=== PATIENT | male | born 1985 | race Caucasian/White ===

== ENCOUNTER 2025-08-14 03:21 | Day surgery (SDC) | payer BC, SELFPAY ==
[2025-08-13 20:04] VITALS: BP 108/75
[2025-08-13 20:35] LABS: Hematocrit 41.8 % (39.0-52.0); Hemoglobin 14.5 g/dL (13.0-18.0); Mean Corp Hgb Conc. 34.7 g/dL (33.0-37.0); Mean Corpuscular Volume 85.3 fL (80.0-94.0); Nucleated Red Blood Cells % 0 % (-); Platelet Count 234 10^3/uL (130-400); Red Cell Dist. Width 11.7 % (11.5-14.5)
[2025-08-13 21:00] LABS: ALT (SGPT) 28 U/L (0-50); AST (SGOT) 21 U/L (17-59); Albumin 4.6 g/dl (3.5-5.0); Alkaline Phosphatase 69 U/L (38-126); Blood Urea Nitrogen 13 mg/dl (9-20); Calcium 9.4 mg/dl (8.4-10.2); Carbon Dioxide 26 mmol/L (22-30); Glucose 91 mg/dl (70-99); Lipase 68 U/L (23-300); Total Protein 7.3 g/dl (6.3-8.2); eGFR > 60.00
[2025-08-13 21:08] LABS: Chloride 105 mmol/L (98-107); Potassium 4.0 mmol/L (3.5-5.1); Sodium 135 mmol/L (135-145)
--- NOTE | 2025-08-13 23:43 | ED.GENMED ---
History of Present Illness
<Sylvie Stock PA-C - Last Filed: 08/14/25 12:37>
General
Chief Complaint: Abdominal Pain
Source: patient
Exam Limitations: none
Time Seen by Provider: 08/13/25 23:28
Nursing documentation reviewed up to this point in time: agreed with
History of Present Illness
History of Present Illness:
Patient is a 40-year-old male who presents to the emergency department for evaluation of upper abdominal pain. Patient states pain started initially on Tuesday evening around 8 PM and was persistent for a few hours however did improve in time for
him to get some sleep. Upon waking yesterday morning he did have some mild discomfort which seemed to gradually worsen throughout the day. Pain was most severe today which he describes as a 'hunger pain' located in his right upper abdomen with
occasional radiation into his right mid back. He was seen in urgent care today where he was referred to the emergency department for imaging with concern of gallbladder/liver etiology. He did have a urinalysis of at urgent care which was
unremarkable.
He reports a relatively normal appetite and has not noticed any clear postprandial correlation to pain.
Patient denies any associated fever, chills, nausea, vomiting, diarrhea, dysuria or hematuria. He denies any chest pain or shortness of breath.
Patient does not drink alcohol. He has a history of polysubstance abuse disorder however has been sober for the past 4 months.
Review of Systems
<Sylvie Stock PA-C - Last Filed: 08/14/25 12:37>
Review of Systems
Allergies reviewed?: Yes
All Other Systems: ROS reviewed and negative except as documented in HPI and ROS
Phy Exam
<Sylvie Stock PA-C - Last Filed: 08/14/25 12:37>
Physical Exam
Physical Exam:
Vitals: Patient's vital signs are stable. Afebrile
General: Patient is very well appearing, no acute distress. Nontoxic appearing
Skin: Warm and dry, no rashes or lesions
Head: Normocephalic, atraumatic
Eyes: Sclera nonicteric.
Throat: Protecting airway
Neck: Normal ROM, no cervical spine tenderness, no meningismus
Cardiac: Regular rate and rhythm, no murmurs.
Pulm: Normal respiratory effort, no wheezes, rales, rhonchi heard on exam
Abdomen: Abdomen soft. Moderate tenderness in right upper quadrant and right mid abdomen. No rebound tenderness or guarding. Negative Ventura sign. No CVA tenderness
Extremities: No evidence of cyanosis or edema
Neuro: AAOx3. Grossly intact.
Psychiatric: Normal affect.
Course
<Sylvie Stock PA-C - Last Filed: 08/14/25 12:37>
Orders/Labs/Results
Orders:
Orders
08/13/25 20:12
Complete Blood Count/With Diff Urgent
Comprehensive Metabolic Panel Urgent
Lipase Urgent
08/13/25 23:39
Ketorolac [Toradol] 15 mg IV NOW STA
08/13/25 23:40
0.9% Sodium Chloride 1000 ml [Nss] 1,000 ml IV BOLUS
08/14/25
CT Abd/Pel (IV only)-DH only Urgent
Reason For Exam: Rt sided abd pain x's 2 days
08/14/25 00:00
US Abdomen Complete/Upper Urgent
Reason For Exam: RUQ pain
08/14/25 02:24
Piperacillin/Tazo 3.375 Gram [Zosyn] 3.375 gram in 50 ml IV NOW
08/14/25 03:05
Admit/Transfer Patient As Directed
Co-Sign Provider:
Level of Care: Observation services
Assign to:: Medical/Surgical
Physician / Group: Dr. Theron Sarmiento / General Surgery
Diagnosis: Acute appendicitis
08/14/25 03:07
Code Status As Directed
Resuscitation Status: Full Code
08/14/25 03:37
0.9% Sodium Chloride 1000 ml [Nss] 1,000 ml IV 100 mls/hr
Benzocaine/Menthol [Anesthetic Lozenge] 1 lozenge PO Q4HPRN PRN
Ondansetron Injectable [Zofran] 4 mg IV Q6HPRN PRN
08/14/25 03:37
Electrocardiogram (*1) Routine
Reason for Study: PreOp
Activity As Directed
Activity Level: Out of Bed-Early Mobility
Anti-embolism (BHUMIKA) Hose As Directed
Type: Thigh high
Bladder Scan As Directed
Follow Bladder Retention/Intermittent Cath Algorithm?: Yes
PRN if no void in __ hours: 6
Frequency: Per Retention Algorithm
If Bladder Scan Result >: 400
then:: Straight cath
Intake/ Output As Directed
Frequency: Per unit guidelines
Pneumatic Compression Sleeves As Directed
Type: Thigh high
Straight Cath As Directed
Frequency: Per Retention Algorithm
Additional Instructions: as per intermittent urinary catheter algorithm
Vital Signs As Directed
Frequency: Per unit guidelines
Weight As Directed
Frequency: Once
O2 Therapy [RESP] Routine
Titrate/Wean O2 to maintain O2 sat greater than (%): 92
Rx Incentive Spirometry [RESP] Routine
Frequency: q1h while awake
# of times per hour: 10
DX Deep Vein Thrombosis Video Routine
08/14/25 04:00
Acetaminophen [Tylenol] 650 mg PO Q4HWA
Ketorolac [Toradol] 10 mg IV Q6H
08/14/25 Breakfast
NPO
Allow oral meds: Yes
Allow clear liquids: Sips of Clears
NPO with Ice Chips: Yes
Comment: NPO for possible OR
08/14/25 08:00
Piperacillin/Tazo 3.375 Gram [Zosyn] 3.375 gram in 50 ml IV Q6H
08/14/25 18:00
Enoxaparin Sodium [Lovenox] 40 mg SC QPM
Abnormal Lab Results
08/13/25
20:12
MPV 10.7 H fL
(7.4-10.4)
08/13/25 20:12
08/13/25 20:12
Vital Signs
Initial and Last Documented VS:
Initial Vital Signs
Temp Pulse Resp BP Pulse Ox
98.9 F 89 18 108/75 98
08/13/25 20:04 08/13/25 20:04 08/13/25 20:04 08/13/25 20:04 08/13/25 20:04
Last Documented Vital Signs
Temp Pulse Resp BP Pulse Ox
97.9 F 57 18 110/82 97
08/14/25 09:19 08/14/25 09:19 08/14/25 09:19 08/14/25 09:19 08/14/25 09:45
<Tavon Keating, - Last Filed: 08/14/25 02:29>
Orders/Labs/Results
Orders:
Orders
08/13/25 20:12
Complete Blood Count/With Diff Urgent
Comprehensive Metabolic Panel Urgent
Lipase Urgent
08/13/25 23:39
Ketorolac [Toradol] 15 mg IV NOW STA
08/13/25 23:40
0.9% Sodium Chloride 1000 ml [Nss] 1,000 ml IV BOLUS
08/14/25
CT Abd/Pel (IV only)-DH only Urgent
Reason For Exam: Rt sided abd pain x's 2 days
08/14/25 00:00
US Abdomen Complete/Upper Urgent
Reason For Exam: RUQ pain
08/14/25 02:24
Piperacillin/Tazo 3.375 Gram [Zosyn] 3.375 gram in 50 ml IV NOW
08/14/25 03:05
Admit/Transfer Patient As Directed
Co-Sign Provider:
Level of Care: Observation services
Assign to:: Medical/Surgical
Physician / Group: Dr. Theron Sarmiento / General Surgery
Diagnosis: Acute appendicitis
08/14/25 03:07
Code Status As Directed
Resuscitation Status: Full Code
08/14/25 03:37
0.9% Sodium Chloride 1000 ml [Nss] 1,000 ml IV 100 mls/hr
Benzocaine/Menthol [Anesthetic Lozenge] 1 lozenge PO Q4HPRN PRN
Ondansetron Injectable [Zofran] 4 mg IV Q6HPRN PRN
08/14/25 03:37
Electrocardiogram (*1) Routine
Reason for Study: PreOp
Activity As Directed
Activity Level: Out of Bed-Early Mobility
Anti-embolism (BHUMIKA) Hose As Directed
Type: Thigh high
Bladder Scan As Directed
Follow Bladder Retention/Intermittent Cath Algorithm?: Yes
PRN if no void in __ hours: 6
Frequency: Per Retention Algorithm
If Bladder Scan Result >: 400
then:: Straight cath
Intake/ Output As Directed
Frequency: Per unit guidelines
Pneumatic Compression Sleeves As Directed
Type: Thigh high
Straight Cath As Directed
Frequency: Per Retention Algorithm
Additional Instructions: as per intermittent urinary catheter algorithm
Vital Signs As Directed
Frequency: Per unit guidelines
Weight As Directed
Frequency: Once
O2 Therapy [RESP] Routine
Titrate/Wean O2 to maintain O2 sat greater than (%): 92
Rx Incentive Spirometry [RESP] Routine
Frequency: q1h while awake
# of times per hour: 10
DX Deep Vein Thrombosis Video Routine
08/14/25 04:00
Acetaminophen [Tylenol] 650 mg PO Q4HWA
Ketorolac [Toradol] 10 mg IV Q6H
08/14/25 Breakfast
NPO
Allow oral meds: Yes
Allow clear liquids: Sips of Clears
NPO with Ice Chips: Yes
Comment: NPO for possible OR
08/14/25 08:00
Piperacillin/Tazo 3.375 Gram [Zosyn] 3.375 gram in 50 ml IV Q6H
08/14/25 18:00
Enoxaparin Sodium [Lovenox] 40 mg SC QPM
Abnormal Lab Results
08/13/25
20:12
MPV 10.7 H fL
(7.4-10.4)
08/13/25 20:12
08/13/25 20:12
Vital Signs
Initial and Last Documented VS:
Initial Vital Signs
Temp Pulse Resp BP Pulse Ox
98.9 F 89 18 108/75 98
08/13/25 20:04 08/13/25 20:04 08/13/25 20:04 08/13/25 20:04 08/13/25 20:04
Last Documented Vital Signs
Temp Pulse Resp BP Pulse Ox
97.9 F 57 18 110/82 97
08/14/25 09:19 08/14/25 09:19 08/14/25 09:19 08/14/25 09:19 08/14/25 09:45
<Sylvie Stock PA-C - Last Filed: 08/14/25 12:37>
MDM/Problems Addressed
Differential Diagnosis Includes:
Not limited to: Gastritis, biliary colic, acute cholecystitis, choledocholithiasis, appendicitis, constipation, pancreatitis, etc.
MDM/Problems Addressed:
40-year-old male presents with 2-day history of right upper abdominal pain. Denies associated fever, nausea/vomiting, urinary symptoms, or clear postprandial correlation. Vitals stable and afebrile throughout ED course. On exam, notable for
reproducible tenderness in the right mid to right upper quadrant. No signs of peritonitis. McBurney's point non-tender.
Initial workup included CBC and chemistry panel, which were unremarkable. Given pain localization, RUQ abdominal ultrasound was performed, showing no acute hepatobiliary or other intra-abdominal findings.
On reassessment, patient continued to have localized tenderness in right mid-abdomen, prompting further imaging. CT abdomen/pelvis obtained to evaluate for atypical appendicitis or other pathology.
CT revealed a retrocecal appendix, mildly dilated with periappendiceal fat stranding�concerning for early acute appendicitis.
Patient remains hemodynamically stable and nontoxic. Case discussed with Dr. Sarmiento from surgery. Plan for admission to surgical service. Patient given IV Zosyn in ED.
Chronic conditions affecting care:
N/A
Acute Exacerbation and/or Progression of Chronic Illness:
N/A
<Sylvie Stock PA-C - Last Filed: 08/14/25 12:37>
*Pulse Oximetry
SaO2: 98
Oxygen Mode of Delivery: Room air
Patient hypoxic: no
*EKG
Interpreted by ED Provider?: NA
*Philosophy Faculty Interpretation
Rate: Philosophy Faculty- N/A
*Critical Care Note
Total Time (30-74mins, 75-104mins- exclusive of procedures): Not Applicable
<Sylvie Stock PA-C - Last Filed: 08/14/25 12:37>
Patient Management
Discussion with other providers: Project Construction Assistant Manager (Case discussed w/ general surgery)
ED Attending Note
<Sylvie Stock PA-C - Last Filed: 08/14/25 12:37>
-
Portions of this chart may have been created with voice recognition software.� Occasional wrong word or��sound alike� substitutions may have occurred due to the inherent limitations of voice recognition software.
<Tavon Keating DO - Last Filed: 08/14/25 02:29>
ED Attending Note
Patient seen and examined by attending physician: Yes
ED Attending Note:
40-year-old male with right lower quadrant abdominal pain has a retrocecal appendicitis. Patient started on antibiotics. Patient to be admitted to the hospital. Patient seen in conjunction with the PA. I reviewed and agree with her history and
treatment plan. On my independent physical exam patient is awake alert and oriented x 3. He is in no acute distress after Toradol administration.
Discharge Plan
Departure
Patient Disposition: Admit
Date of Disposition: 08/14/25
Time of Disposition: 02:34
Admit to doctor: Dr. Sarmiento
Presentation/result/management discussed w/ accepting MD/DO: General Surgery
Discharge Problem:
Acute appendicitis
Interventions
Interventions:
*Risk Screen - Suicide Last Done: 08/13/25 20:04
*General Assessment Last Done: 08/13/25 20:04
*Neglect/Abuse Screening Last Done: 08/13/25 23:47
*ED- Fall Risk Assessment Last Done: 08/13/25 20:04
*ED COVID-19 Vaccine History Last Done: 08/13/25 20:04
*ED Influenza Vaccine History Last Done: 08/13/25 20:04
DT-Mtkrcm-Xrbqzspcao Assessment Last Done: 08/13/25 23:47
[2025-08-13 23:46] VITALS: BP 106/80
[2025-08-13 23:47] VITALS: BMI 31.3
[2025-08-13] MEDS: NSS 1000 IV (23:57)
[2025-08-13] MEDS: TORADOL 15 MG IV (23:58)
[2025-08-14] VITALS (14 sets, daily range): BP systolic 95–125; BP diastolic 61–84; BMI 30.3
--- NOTE | 2025-08-14 02:22 | DOWNTIME ---
There was a [email or web address] Client Medical Technologist Hematology Downtime on 08/14/2025 from 0100 to 08/14/2025 at 0215. Downtime documentation of patient's care, including medication administrations, has been reconciled in the electronic record per guidelines. Refer to the
patient's paper chart under the miscellaneous tab to see printed paper medication records and downtime forms.
[2025-08-14] MEDS: ZOSYN 50 IV ×4 (02:42→19:55)
--- NOTE | 2025-08-14 03:15 | HPS.HSE ---
Addendum entered and electronically signed by Theron Sarmiento MD 08/14/25 11:52:
I saw and examined the patient.
The Associate Merchandiser's note was reviewed and I agree with the note.
Comment: 3 days abd pain, began generalized and migrated to RLQ. AFVSS, no leukocytosis, CT c/w apppendicitis - OCTOR for lap appy; NPO, IV abx
DVT ppx
Original Note:
Family Physician
-
Family Physician: Luis Carlos Delarosa
Chief Complaint
-
Abdominal pain
History of Present Illness
Patient is a 40 year old male with a past medical history significant for polysubstance abuse disorder (sober for the past 4 months), who presents to the emergency department with the complaint of upper abdominal pain. Patient states pain started
Tuesday and felt like gas pain, which persisted for a few hours but improved in time for him to go to sleep. Yesterday morning, pain continued and described as nagging discomfort that worsened throughout the day. Today pain increased through out the
day and moved from generalized abdominal pain to right lower quadrant pain. He did go to urgent care for evaluation and was referred to the emergency department for further evaluation. Patient reports normal appetite, denies nausea/vomiting, fevers,
chills, diarrhea, dysuria or hematuria. He denies chest pain, shortness of breath or lightheadedness/dizziness. Patient does not drink alcohol. Patient reports he has a history of polysubstance abuse disorder, however, he has been sober for the past
4 months.
In the emergency department, labs unremarkable, vital signs stable, afebrile.
-U/S Abdomen - preliminary read shows: Contracted otherwise normal gallbladder. No sludge or gallstones. Negative Ventura sign. No biliary ductal dilatation. No free fluid.
Visualized liver, pancreas and spleen without gross abnormality. Smaller right kidney, 9.5 x 3.7 cm with cortical thinning. Left kidney measures 10.4 x 4.7 cm. No hydronephrosis bilaterally.
-CT Abd/Pelvis w/IV contrast - preliminary read shows: Right lower quadrant retrocecal appendix minimally dilated at 8 mm with faint periappendiceal fat stranding proximally, concerning for early acute appendicitis, in the appropriate clinical
setting. No bowel obstruction, abscess, or free air. No pericholecystic or peripancreatic inflammation. No obstructive uropathy or periephric stranding. No symmetric renal enhancement and excretion. Normal bladder.
Patient received Toradol, NSS 1 liter bolus, IV antibiotics - Zosyn 3.375g IV x 1 dose.
ED provider, Sylvie Stock PA-C reviewed with General Surgery, Dr. Sarmiento, who is accepting the patient to his service.
Plan: NPO, IV antibiotics, IV fluids, pain management, and antiemetics.
Medical History
Past Medical History
Past Medical History: Reports Other (polysubstance use disorder)
Past Surgical History: Reports Orthopedic (Knee arthroscopy)
Social History
Tobacco: Vaping
Alcohol: None
Drug: Former User (polysubstance use disorder, sober past four months)
Personal:
Living: With Family
Employment: Employed
Family History
Family History: Not pertinent
Allergies / Home Medications
Allergies reflects when Allergies were last updated in [employer].
Home Medications with original date entered in [employer]
Allergy/Medication List:
Patient Allergies
Allergy/AdvReac Type Severity Reaction Status Date / Time
No Known Allergies Allergy Unverified 08/13/25 20:04
Home Medications
�Medication �Instructions �Recorded
No Meds [No Current Medications] 08/14/25
Review of Systems
-
History Source: Patient
A 12 point ROS was completed and negative except as noted: Yes
Constitutional: Reports No Symptoms
EENT: Reports No Symptoms
Respiratory: Reports No Symptoms
Cardiac: Reports No Symptoms
Abdomen/GI: Reports Abdominal Pain (right lower quadrant, tender to palpation)
: Reports No Symptoms
Musculoskeletal: Reports No Symptoms
Skin: Reports No Symptoms
Neurological: Reports No Symptoms
Psych: Reports No Symptoms
Physical Exam
Vital Signs
Vital Signs
Temp Pulse Resp BP Pulse Ox
98.9 F 89 18 105/79 99
08/13/25 20:04 08/13/25 20:04 08/13/25 20:04 08/14/25 02:00 08/14/25 02:45
Physical Exam
General: No Apparent Distress, Comfortable and Conversant
HEENT: NormoCephalic, Moist mucous membranes and PERRLA
Respiratory: Clear and Non Labored Respirations
Cardiac: S1/S2 and Regular Rhythm
GI: Soft, Normal Bowel Sounds and Tender (right lower quadrant)
Skin: Warm and Dry
Neuro: Awake, Alert and Oriented
Psych: Calm and Intact Judgment/Insight
Laboratory Results
-
08/13/25 20:12
08/13/25 20:12
Laboratory Results
Total Bilirubin 0.3 mg/dl (0.2-1.3) 08/13/25 20:12
AST 21 U/L (17-59) 08/13/25 20:12
ALT 28 U/L (0-50) 08/13/25 20:12
Alkaline Phosphatase 69 U/L (38-126) 08/13/25 20:12
Lipase 68 U/L (23-300) 08/13/25 20:12
Data Reviewed
-
CT Scan: Report Reviewed by me
Ultrasound: Report Reviewed by me
Lab Data: Labs Reviewed by me
Impression/Plan
-
IMPRESSION:
Patient is a 40 year old male with a past medical history significant for polysubstance abuse disorder (sober for the past 4 months), who presents to the emergency department with the complaint of upper abdominal pain.
PLAN:
Acute appendicitis
-Admit to General Surgery, Med Surg under the service of Dr. Sarmiento
-U/S Abdomen - preliminary read shows: Contracted otherwise normal gallbladder. No sludge or gallstones. Negative Ventura sign. No biliary ductal dilatation. No free fluid.
Visualized liver, pancreas and spleen without gross abnormality. Smaller right kidney, 9.5 x 3.7 cm with cortical thinning. Left kidney measures 10.4 x 4.7 cm. No hydronephrosis bilaterally.
-CT Abd/Pelvis w/IV contrast - preliminary read shows: Right lower quadrant retrocecal appendix minimally dilated at 8 mm with faint periappendiceal fat stranding proximally, concerning for early acute appendicitis, in the appropriate clinical
setting. No bowel obstruction, abscess, or free air. No pericholecystic or peripancreatic inflammation. No obstrucive uropathy or periephric stranding. No symmetric renal enhancement and excretion. Normal bladder.
-NPO until seen by surgery, IV fluids NSS @ 100 mls/hr
-IV antibiotics: Continued Zosyn 3.375 mg Q6H.
-Pain medication: Toradol, Tylenol - No narcotic pain medication per patient request.
-Antiemetics: Zofran
Patient wants to AVOID NARCOTIC PAIN MEDICATION as he is recovering from polysubstance use disorder and has been sober for the past 4 months.
DVT Prophylaxis: SCD's
Code status: Full code
[2025-08-14] MEDS: NSS 1000 IV ×3 (03:48→23:24)
[2025-08-14] MEDS: TYLENOL 650 MG PO ×3 (04:13→19:55)
[2025-08-14] MEDS: TORADOL 10 MG IV ×4 (04:14→21:34)
[2025-08-14] MEDS: NICODERM TRANSDERMAL 14 MG TRANSDERM (08:16)
--- NOTE | 2025-08-14 10:00 | CM ---
CM reviewed chart and met with patient at ED bedside
OBS form explained to patient and signed at 9:50 am. Form left with him as requested
Lives in a 3 story home with his . no VINCENT
Independent, working and driving
No DME
PCP Dr. Luis Carlos Delarosa
RX plan none
Pharmacy [facility] in [place]
no hx of VN no hx of SNF
Anticipated dcp is to return home when ready
CM will continue to follow up for dcp needs.
[2025-08-14] MEDS: TYLENOL PO ×3 (11:16→23:40)
--- NOTE | 2025-08-14 18:22 | PTCARENOTE ---
Pt received from ED. AAOx3. VSS. IVF infusing per order. Pt remains NPO at this time for OR. Denies any pain at this time. Family member at bedside. Pt resting in bed, call culver in reach.
[2025-08-15] MEDS: ZOSYN 50 IV ×2 (01:18→09:32)
[2025-08-15] MEDS: TORADOL 10 MG IV (03:52)
[2025-08-15] MEDS: TYLENOL PO ×2 (03:53→08:29)
[2025-08-15 07:00] VITALS: BP 111/75
[2025-08-15] MEDS: NICODERM TRANSDERMAL TRANSDERM (08:29)
--- NOTE | 2025-08-15 08:32 | TRANSFER ---
This RN received call for patient to be brought down to OR. Patient assessed. Pain well managed with IV Toradol. Patient advised to remove undergarments and jewelry. CHG wipes completed. IV fluids capped.
--- NOTE | 2025-08-15 09:24 | W.SUR.PREOP ---
Pre-Operative Surgical Note
-
I have examined this patient prior to the performance of the scheduled procedure.
The patient's condition is unchanged from the time of the current History and
Physical and the patient is able to undergo the scheduled procedure.
Reviewed with patient indications for appendectomy. Laparoscopic appendectomy is reviewed in detail including the operative technique, alternative treatment options, benefits and potential risk such as but not limited to bleeding, infectious and
wound related complications, and iatrogenic injury to surrounding structures. We discussed typical postoperative recovery pending operative findings and written informed consent was obtained.
[2025-08-15] MEDS: TORADOL IV (10:01)
[2025-08-15 10:23] VITALS: BP 111/75; BP 116/67
--- NOTE | 2025-08-15 10:28 | W.IMMPOSTOP ---
Addendum entered and electronically signed by Hitesh Tidwell MD 08/15/25 10:33:
#[id number]
Original Note:
Surgical Immed Post Op Note
-
Primary Surgeon: Hitesh Tidwell MD
Assisting Surgeon: Ventura Simpson
Pre-op Diagnosis: Acute appendicitis
Post-op Diagnosis: Acute appendicitis
Procedure Performed: Laparoscopic appendectomy
Anesthesia Type: GETA +0.25% Marcaine with epi
Specimen / Cultures: Appendix
Estimated Blood Loss: 4 mL
Complications: None immediate
Operative Findings: Acutely inflamed/indurated appendix. No exudate. No purulence. No perforation or abscess. No disruption of appendix with appendectomy.
[2025-08-15 10:30] VITALS: BP 110/67
[2025-08-15 10:45] VITALS: BP 108/64
[2025-08-15 11:00] VITALS: BP 108/66
[2025-08-15] MEDS: NSS IV (11:07)
--- NOTE | 2025-08-15 12:43 | W.DS.TRANS ---
DC Summary - Information Scientist
-
Discharge Instructions:
Discharge Diagnosis/Procedures Acute appendicitis. Laparoscopic appendectomy
Diet As tolerated,Regular
Additional Diets Smaller meals initially after surgery as
abdominal bloating and distention are common for
the first few days
Activity No strenuous activity
Driving Restrictions No driving for 24 hours
Bathing Restrictions OK to Shower
Wound Care Glue at surgical sites typically peels off in 2
to 3 weeks
Instructions:
Stand-Alone Forms:
Changes to Home Medications: No
Discharge Medications:
DC Medications w/original date entered in [facility]
acetaminophen 500 mg tablet (Tylenol Extra Strength) 1,000 mg (2 x 500 mg) PO Q6HPRN PRN mild pain #1 tab 08/15/25
ibuprofen 200 mg tablet 400 mg (2 x 200 mg) PO Q6HPRN PRN moderate pain #1 tab 08/15/25
polyethylene glycol 3350 17 gram/dose oral powder (Miralax) 4 g PO DAILY PRN Constipation #119 grams 08/15/25
Home Medication Changes
Pending Results: No
--- NOTE | 2025-08-15 13:03 | PTCARENOTE ---
Patient for discharge to home. Discharge instructions, including post operative care, was reviewed with patient by this RN. IV removed. All belongings accounted for. [facility] with his mother, for discharge to home.
--- NOTE | 2025-08-15 15:20 | CM ---
MD entered order for discharge.
Postop today
Family drove him home.
PLAN Home no needs
== END 2025-08-15 13:34 | disposition home or self-care (01) ==
LOC: SDS 03:21
PROVIDERS: Emergency Medicine; ATTENDING PHYSICIAN Surgery; EMERGENCY PHYSICIAN Student in an Organized Health Care Education/Training Program; FAMILY PHYSICIAN Family Medicine
DX: K35.80 Unspecified acute appendicitis (principal); F17.290 Nicotine dependence, other tobacco product, uncomplicated; F19.11 Other psychoactive substance abuse, in remission; Z79.899 Other long term (current) drug therapy
CPT/HCPCS: 44970; 74177; 76700; 80053; 83690; 85025; 88304; 93005; 96361; 96365; 96375; 99285; G0378; Q9967